=== PATIENT | female | born 1930 | race Two or more races ===

== ENCOUNTER 2017-08-21 11:20 | Outpatient (CLI) | payer OTHER ==
[~2017-08-21 11:20] MED LIST: ATENOLOL25 MG PO; ENALAPRIL MALE2.5 MG; LEXAPRO5 MG PO; OMEGA-31000 MG; PREVACID 15MG15 MG; SYNTHROID50 MCG PO
== END 2017-08-21 11:28 | disposition home or self-care (01) ==
LOC: RAD 11:20
DX: M17.11 Unilateral primary osteoarthritis, right knee (principal); M17.12 Unilateral primary osteoarthritis, left knee; M16.11 Unilateral primary osteoarthritis, right hip; M16.12 Unilateral primary osteoarthritis, left hip